=== PATIENT | male | born 1985 | race African-American/Black ===

== ENCOUNTER 2019-01-23 01:12 | Emergency (ER) | payer MEDICAID, OTHER ==
[~2019-01-23] VITALS: Ht 182.9 cm; Wt 145.1 kg
[~2019-01-23 01:12] MED LIST: CYCLOBENZAPRINE10 MG ORAL; IBUPROFEN800 MG ORAL
--- NOTE | 2019-01-23 01:20 | NUR ---
ED Nurse Note: PAtient walked into Ed c/o right hand pain, patient states that he has been feeling pain that goes from his rigt hand to his forearm. he rates his pain a 5/10 pain. patient is alert and oriented x4, ambulatory with a steady gait, VSS
[2019-01-23 01:25] VITALS: BP 120/72
[2019-01-23] MEDS ORDERED: NKM (01:25)
[2019-01-23] MEDS ORDERED: IBUPROFEN600 MG ORAL (01:32)
--- NOTE | 2019-01-23 01:32 | Emergency Room Report ---
History of Present Illness General Chief Complaint: Pain Source: Patient Present Illness HPI Is a 33-year-old male who is right-hand dominant. She presents with chief complaint right wrist pain. There was no trauma. Onset for last couple days. He said he try to push himself off the ground and felt pain in his right wrist. Pain is to the radial aspect. Worse with movement and palpation. Better with rest. Pain is 7 out of 10. No other injury. No redness or swelling. Allergies: Coded Allergies: No Known Allergies (Unverified , 10/31/15) Patient History Past Medical History: see triage record, old chart reviewed Past Surgical History: none Pertinent Family History: none Social History: Denies: smoking Immunizations: other Reviewed Nursing Documentation: PMH: Agreed; PSxH: Agreed Nursing Documentation-PM Past Medical History: No Stated History Hx Hypertension: Yes Review of Systems Eye: Denies: eye pain, blurred vision ENT: Denies: ear pain, nose congestion, throat swelling Respiratory: Denies: cough, shortness of breath Cardiovascular: Denies: chest pain, palpitations Gastrointestinal: Denies: abdominal pain, diarrhea, nausea, vomiting Musculoskeletal: Reports: joint pain; Denies: back pain Skin: Denies: rash Neurological: Denies: headache, numbness Endocrine: Denies: increased thirst, increased urine Hematologic/Lymphatic: Denies: easy bruising All Other Systems: negative except mentioned in HPI Physical Exam Vital Signs Date Time Temp Pulse Resp B/P (MAP) Pulse Ox O2 Delivery O2 Flow Rate FiO2 01/23/19 01:20 99.0 79 12 118/74 97 Room Air vitals normal Sp02 EP Interpretation: reviewed, normal General Appearance: well appearing, no apparent distress, alert, obese Head: normocephalic, atraumatic Eyes: bilateral eye PERRL, bilateral eye EOMI ENT: hearing grossly normal, normal pharynx Neck: full range of motion, supple, no meningismus Respiratory: chest non-tender, lungs clear, normal breath sounds Cardiovascular #1: regular rate, rhythm, no murmur Gastrointestinal: normal bowel sounds, non tender, no mass, no organomegaly, no bruit, non-distended Musculoskeletal: back normal, gait/station normal, normal range of motion, other - Right wrist: Tenderness of the distal radius and base of the first metacarpal bone. It's minimal. No edema. No redness. Full range of motion. Psychiatric: mood/affect normal Skin: warm/dry Procedures Splinting Splinting : Consent: Verbal Location: Right wrist Pre-Made Type: velcro Splint: volar Pre-Proc Neuro Vasc Exam: normal Post-Proc Neuro Vasc Exam: normal Patient Tolerated: Well Complications: None Medical Decision Making Diagnostic Impression: Primary Impression: Right wrist sprain Qualified Codes: S63.501A - Unspecified sprain of right wrist, initial encounter ER Course Patient with wrist sprain. No fracture dislocation. No indication for x-rays. We'll discharge home. Last Vital Signs Date Time Temp Pulse Resp B/P (MAP) Pulse Ox O2 Delivery O2 Flow Rate FiO2 01/23/19 01:20 99.0 79 12 118/74 97 Room Air Status: improved Disposition: HOME, SELF-CARE Condition: Stable Scripts Ibuprofen* (MOTRIN*) 600 Mg Tablet 600 MG ORAL THREE TIMES A DAY, #30 TAB 0 Refills Prov: Roscoe Kennedy MD 01/23/19 Additional Instructions: Follow-up with your doctor in 7 days. Return if symptom worsen. Roscoe Kennedy MD Jan 23, 2019 01:32
[2019-01-23 01:35] VITALS: BP 125/75
--- NOTE | 2019-01-23 01:35 | NUR ---
ER DISCHARGE NOTE: Patient is cleared to be discharged per ERMD, pt is aox4, on room air, with stable vital signs. pt was given dc and prescription instructions, pt was able to verbalize understanding, pt id band removed without complications. pt is able to ambulate with steady gait. pt took all belongings. patient was applied a velcro slign on the right hand
== END 2019-01-23 02:00 | disposition home or self-care (01) ==
LOC: EMR 01:55
DX: S63.501A Unspecified sprain of right wrist, initial encounter (principal); X50.9XXA Other and unspecified overexertion or strenuous movements or postures, initial encounter; Y92.89 Other specified places as the place of occurrence of the external cause; I10 Essential (primary) hypertension
CPT/HCPCS: 29125; 99283